=== PATIENT | male | born 1955 | race Caucasian/White ===

== ENCOUNTER → 2017-04-19 | Outpatient (CLI) | payer MEDICARE, OTHER | END | disposition home or self-care (01) | LOC: PETCFH 10:20 | PROVIDERS: ATTEND Orthopaedic Surgery | DX: T84.84XS Pain due to internal orthopedic prosthetic devices, implants and grafts, sequela (principal); Z96.651 Presence of right artificial knee joint; X58.XXXS Exposure to other specified factors, sequela | CPT/HCPCS: 78315; A9503 ==

== ENCOUNTER 2017-10-11 00:01 | Emergency (ER) | payer MEDICARE, OTHER ==
[~2017-10-11] VITALS: Ht 193 cm; Wt 135.0 kg
[2017-10-11] MEDS ORDERED: HYDROmorphone 2 MG/ML, 1ML ONE ×2 (00:13→01:14)
[2017-10-11] MEDS: HYDROmorphone 1 MG/ML, 1ML IVPush PRN ×2 (00:15→00:31)
[2017-10-11] MEDS ORDERED: ONDANSETRON 2MG/ML, 2ML IVPush ONE (00:30)
[2017-10-11] MEDS ORDERED: OXYcodone/APAP 5/325MG TABLET PO ONE (00:30)
[2017-10-11] MEDS ORDERED: SODIUM CHLORIDE FLUSH 10ML SYR IVF ONE (00:30)
[2017-10-11 00:40] LABS: HEMATOCRIT 49.3 % (39.2-51.8); HEMOGLOBIN 16.8 g/dL (13.7-18.0); WHITE BLOOD COUNT 7.9 x10^3/uL (3.4-10)
[2017-10-11 00:44] LABS: BLOOD UREA NITROGEN 8 mg/dL (7-18)
[2017-10-11 00:47] LABS: ASPARTATE AMINO TRANSFERASE 27 U/L (15-37)
[2017-10-11] MEDS ORDERED: OMNIPAQUE 350 MG/ML, 100ML BOTTLE ONE (01:19)
[2017-10-11 02:17] VITALS: BP 143/85
[2017-10-11] MEDS ORDERED: HYDROmorphone 2 MG/ML, 1ML IV ONE (02:30)
[2017-10-11] MEDS ORDERED: HYDROmorphone 1 MG/ML, 1ML IV ONE (02:30)
== END 2017-10-11 02:18 | disposition short-term general hospital (02) ==
LOC: ED 01:56
DX: S22.42XA Multiple fractures of ribs, left side, initial encounter for closed fracture (principal); S27.0XXA Traumatic pneumothorax, initial encounter; I10 Essential (primary) hypertension; W01.0XXA Fall on same level from slipping, tripping and stumbling without subsequent striking against object, initial encounter; Y93.89 Activity, other specified; Y92.009 Unspecified place in unspecified non-institutional (private) residence as the place of occurrence of the external cause; Y99.9 Unspecified external cause status
CPT/HCPCS: 36415; 71010; 71260; 74177; 80053; 83690; 85025; 85610; 85730; 93005; 96374; 96376; 99291; J1170; Q9967